=== PATIENT | male | born 1985 | race Caucasian/White ===

== ENCOUNTER 2018-08-10 03:06 | Emergency (ER) | payer MEDICAID ==
[2018-08-10] MEDS ORDERED: NS 1,000 ML IV ONE ×2 (03:12→04:09)
--- NOTE | 2018-08-10 03:14 | EDPHY ---
H & P Time Seen by Provider: 08/10/18 03:13 HPI/ROS: HPI CHIEF COMPLAINT: Abdominal pain. HISTORY OF PRESENT ILLNESS: Patient is a 32-year-old male, [place] with abdominal pain. Patient states he developed abdominal pain at 2:00 a.m. In the afternoon. It is now 315 in the morning. He presents to the emergency room complaining of achy right lower quadrant abdominal pain. Nonradiating. No back pain, he denies any nausea vomiting or diarrhea, denies fever. Denies testicular pain or urinary symptoms. Pain is located mid right abdomen. Denies any chest pain or shortness of breath. He does report he has been doing IV methamphetamine. Past Medical History: Denies significant medical history Past Surgical History: Hernia repair Social History: Homeless, IV methamphetamine. Family History: ROS REVIEW OF SYSTEMS: 10 Systems were reviewed and negative with the exception of the elements mentioned in the history of present illness. Exam Constitutional triage nursing summary reviewed, vital signs reviewed, awake/ alert. Eyes normal conjunctivae and sclera, EOMI, PERRLA. HENT oropharynx poor dentition. normal inspection, atraumatic, moist mucus membranes, no epistaxis, neck supple/ no meningismus, no raccoon eyes. Respiratory clear to auscultation bilaterally, normal breath sounds, no respiratory distress, no wheezing. Cardiovascular rate normal, regular rhythm, no murmur, no edema, distal pulses normal. Gastrointestinal mild tender palpation right lower quadrant, no peritoneal signs,, no rebound, no guarding, normal bowel sounds, no distension, no pulsatile mass. Genitourinary no CVA tenderness. Musculoskeletal no midline vertebral tenderness, full range of motion, no calf swelling, no tenderness of extremities, no meningismus, good pulses, neurovascularly intact. Skin pink, warm, & dry, no rash, skin atraumatic. Neurologic awake, alert and oriented x 3, AAOx3, moves all 4 extremities equally, motor intact, sensory intact, CN II-XII intact, normal cerebellar, normal vision, normal speech. Psychiatric normal mood/affect. Heme/Lymph/Immune no lymphadenopathy. Differential Diagnosis: Differential diagnosis includes but is not limited to and in no particular order: Bowel obstruction, appendicitis, gallbladder disease, diverticulitis, colitis, enteritis, perforated viscus, gastritis, GERD , esophagitis, urinary tract infection, pyelonephritis, kidney stones Medical Decision Making: Plan for this patient IV establishment IV fluid bolus , basic labs, urinalysis, CT scan abdomen pelvis with IV contrast for right lower sided abdominal pain. Re-evaluation: 626: Patient re-evaluated this time resting comfortably. His abdomen is re- evaluated is soft nontender. Patient is CT scan abdomen pelvis with IV contrast this shows no evidence of acute inflammatory process. There was questionable straining fluid around the pancreas however this could be due to averaging artifact. The lipase is normal. Additionally there pulmonary nodule seen at the right lung base measuring 6 mm. The patient does smoke I did discussed this with him he should follow up with his primary care doctor about this in 3-6 months to have surveillance. Unable to visualize the appendix. But no secondary findings of this. Return precautions discussed with the patient. Additionally the patient's creatinine was initially 1.8 he received 2 L of fluid here. I did repeat his creatinine is down to 1.5. I have brought this to his attention that he should stay well-hydrated and have his creatinine rechecked by his primary care doctor Patient is comfortable this plan. He no longer has any abdominal pain he is not vomiting. I did discussed return precautions with him he understands return emergency room if develops worsening abdominal pain, fever, vomiting. I also discussed the patient they were unable to visualize the appendix on the CT scan today but there were no secondary findings of acute appendicitis. Given that he had a right-sided abdominal pain she return emergency room for recheck and if he gets worse today return sooner. He understands this. Source: Patient, EMS Constitutional: Initial Vital Signs Temperature (C) 36.9 C 08/10/18 03:10 Heart Rate 116 H 08/10/18 03:10 Respiratory Rate 16 08/10/18 03:10 Blood Pressure 101/66 08/10/18 03:10 O2 Sat (%) 92 08/10/18 03:10 O2 Delivery Mode Room Air Allergies/Adverse Reactions: No Known Allergies Allergy (Verified 08/10/18 03:16) Home Medications: Medication Instructions Recorded NK [No Known Home Meds] 08/10/18 Medical Decision Making - Data Points Laboratory Results: Laboratory Results 08/10/18 03:43 08/10/18 03:20 08/10/18 08/10/18 08/10/18 06:26 06:21 03:43 WBC 12.20 10^3/uL H 10^3/uL (3.80-9.50) RBC 4.48 10^6/uL 10^6/uL (4.40-6.38) Hgb 13.4 g/dL L g/dL (13.7-17.5) POC Hgb 14.3 gm/dL gm/dL (13.7-17.5) Hct 43.2 % % (40.0-51.0) POC Hct 42 % % (40-51) MCV 96.4 fL fL (81.5-99.8) MCH 29.9 pg pg (27.9-34.1) MCHC 31.0 g/dL L g/dL (32.4-36.7) RDW 12.8 % % (11.5-15.2) Plt Count 264 10^3/uL 10^3/uL (150-400) MPV 11.5 fL fL (8.7-11.7) Neut % (Auto) 74.5 % H % (39.3-74.2) Lymph % (Auto) 16.7 % % (15.0-45.0) Ashe % (Auto) 8.1 % % (4.5-13.0) Eos % (Auto) 0.3 % L % (0.6-7.6) Baso % (Auto) 0.2 % L % (0.3-1.7) Nucleat RBC Rel Count 0.0 % % (0.0-0.2) Absolute Neuts (auto) 9.08 10^3/uL H 10^3/uL (1.70-6.50) Absolute Lymphs (auto) 2.04 10^3/uL 10^3/uL (1.00-3.00) Absolute Monos (auto) 0.99 10^3/uL H 10^3/uL (0.30-0.80) Absolute Eos (auto) 0.04 10^3/uL 10^3/uL (0.03-0.40) Absolute Basos (auto) 0.03 10^3/uL 10^3/uL (0.02-0.10) Absolute Nucleated RBC 0.00 10^3/uL 10^3/uL (0-0.01) Immature Gran % 0.2 % % (0.0-1.1) Immature Gran # 0.02 10^3/uL 10^3/uL (0.00-0.10) POC Sodium 142 mEq/L mEq/L (135-145) Sodium POC Potassium 4.2 mEq/L mEq/L (3.3-5.0) Potassium POC Chloride 103 mEq/L mEq/L (97-110) Chloride Carbon Dioxide POC Total CO2 22 mEq/L mEq/L (22-31) Anion Gap POC BUN 7 mg/dL mg/dL (7-23) BUN Creatinine POC Creatinine 1.5 mg/dL H mg/dL (0.7-1.3) Estimated GFR Glucose POC Glucose 141 mg/dL H mg/dL (70-100) Calcium Total Bilirubin Conjugated Bilirubin Unconjugated Bilirubin AST ALT Alkaline Phosphatase Creatine Kinase Total Protein Albumin Lipase Urine Color Pending Urine Appearance Pending Urine pH Pending Ur Specific Grant Pending Urine Protein Pending Urine Ketones Pending Urine Blood Pending Urine Nitrate Pending Urine Bilirubin Pending Urine Urobilinogen Pending Ur Leukocyte Esterase Pending Urine Glucose Pending Urine Opiates Screen Pending Urine Barbiturates Pending Ur Phencyclidine Scrn Pending Ur Amphetamine Screen Pending U Benzodiazepines Scrn Pending Urine Cocaine Screen Pending U Marijuana (THC) Screen Pending Ethyl Alcohol 08/10/18 08/10/18 03:20 03:00 WBC RBC Hgb POC Hgb Hct POC Hct MCV MCH MCHC RDW Plt Count MPV Neut % (Auto) Lymph % (Auto) Ashe % (Auto) Eos % (Auto) Baso % (Auto) Nucleat RBC Rel Count Absolute Neuts (auto) Absolute Lymphs (auto) Absolute Monos (auto) Absolute Eos (auto) Absolute Basos (auto) Absolute Nucleated RBC Immature Gran % Immature Gran # POC Sodium Sodium 142 mEq/L mEq/L (135-145) POC Potassium Potassium 4.1 mEq/L mEq/L (3.5-5.2) POC Chloride Chloride 104 mEq/L mEq/L (97-110) Carbon Dioxide 24 mEq/l mEq/l (22-31) POC Total CO2 Anion Gap 14 mEq/L mEq/L (6-14) POC BUN BUN 10 mg/dL mg/dL (7-23) Creatinine 1.8 mg/dL H mg/dL (0.7-1.3) POC Creatinine Estimated GFR 43 Glucose 115 mg/dL H mg/dL (70-100) POC Glucose Calcium 10.0 mg/dL mg/dL (8.5-10.4) Total Bilirubin 0.7 mg/dL mg/dL (0.1-1.4) Conjugated Bilirubin 0.5 mg/dL mg/dL (0.0-0.5) Unconjugated Bilirubin 0.2 mg/dL mg/dL (0.0-1.1) AST 23 IU/L IU/L (17-59) ALT 28 IU/L IU/L (21-72) Alkaline Phosphatase 120 IU/L IU/L (38-126) Creatine Kinase 70 IU/L IU/L (0-224) Total Protein 8.8 g/dL H g/dL (6.3-8.2) Albumin 4.9 g/dL g/dL (3.5-5.0) Lipase 195 IU/L IU/L (23-300) Urine Color Urine Appearance Urine pH Ur Specific Grant Urine Protein Urine Ketones Urine Blood Urine Nitrate Urine Bilirubin Urine Urobilinogen Ur Leukocyte Esterase Urine Glucose Urine Opiates Screen Urine Barbiturates Ur Phencyclidine Scrn Ur Amphetamine Screen U Benzodiazepines Scrn Urine Cocaine Screen U Marijuana (THC) Screen Ethyl Alcohol < 10 mg/dL mg/dL (0-10) Medications Given: Discontinued Medications Sodium Chloride (Ns) 1,000 mls @ 0 mls/hr IV EDNOW ONE; Wide Open PRN Reason: Protocol Stop: 08/10/18 03:13 Last Admin: 08/10/18 03:17 Dose: 1,000 mls Sodium Chloride (Ns) 1,000 mls @ 0 mls/hr IV ONCE ONE PRN Reason: Wide Open Stop: 08/10/18 04:10 Last Admin: 08/10/18 04:16 Dose: 1,000 mls Point of Care Test Results: Chemistry 08/10/18 06:21 POC Sodium 142 mEq/L mEq/L (135-145) POC Potassium 4.2 mEq/L mEq/L (3.3-5.0) POC Chloride 103 mEq/L mEq/L (97-110) POC Total CO2 22 mEq/L mEq/L (22-31) POC BUN 7 mg/dL mg/dL (7-23) POC Creatinine 1.5 mg/dL H mg/dL (0.7-1.3) POC Glucose 141 mg/dL H mg/dL (70-100) ISTAT H&H 08/10/18 06:21 POC Hgb 14.3 gm/dL gm/dL (13.7-17.5) POC Hct 42 % % (40-51) Departure - Departure Disposition: Home, Routine, Self-Care Clinical Impression: Lung nodule Abdominal pain Qualifiers: Abdominal location: unspecified location Qualified Code(s): R10.9 - Unspecified abdominal pain Condition: Good Instructions: Acute Abdominal Pain (ED), Pulmonary Nodules (ED) Additional Instructions: 1. Please have your pulmonary nodule followed up by her primary care doctor over the next 3-6 months. 2. Return to the emergency room if you have worsening abdominal pain, fever, vomiting or not doing well. 3. Please stop doing methamphetamine. 4. Your kidney function was slightly elevated today in the emergency room. Please have this followed up by her primary care doctor. Please stay well- hydrated drink lots of fluids. 5. Return to the emergency room if you have worsening abdominal pain Referrals: NONE *PRIMARY CARE P,. [Primary Care Provider] - As per Instructions [facility],. [Clinic] - As per Instructions
[2018-08-10] MEDS ORDERED: IOPAMIDOL (ISOVUE-300) 100 ML BTL ONE (03:34)
[2018-08-10 03:52] LABS: PLATELET COUNT 264 10^3/uL (150-400)
[2018-08-10 04:56] LABS: CREATINE KINASE 70 IU/L (0-224)
[2018-08-10 07:27] VITALS: BP 103/65
== END 2018-08-10 07:26 | disposition home or self-care (01) ==
LOC: EDUNIT#
DX: R10.31 Right lower quadrant pain (principal); R91.1 Solitary pulmonary nodule; E86.9 Volume depletion, unspecified; Z59.0 Homelessness
CPT/HCPCS: 80305; 82435-PO; 82565-PO; 82947-PO; 84132-PO; 84295-PO; 84520-PO; 85014-ER; G0480; Q9967